=== PATIENT | male | born 1985 | race Caucasian/White ===

== ENCOUNTER 2018-01-19 01:10 | Emergency (ER) | payer SELFPAY ==
[~2018-01-19] VITALS: Ht 170.2 cm; Wt 68.1 kg
[2018-01-19 01:13] VITALS: BP 116/82
--- NOTE | 2018-01-19 01:28 | NUR ---
Dr. Howard evaluating patient at bedside.
--- NOTE | 2018-01-19 01:29 | NUR ---
PT BIB SELF C/O DIZZINESS, PT WAS SEEN BY PCP YESTERDAY FOR SORETHROAT AND LAB WORK, GIVEN RX NASAL SPARY AND ABX, PT TOOK NASAL SPRAY TODAY TOOK A NAP AND WOKE UP FEELING LIKE ROOM SPINNING. PT [id number]&[id number], LAYING IN BED, AWAKE, APPEARS TO BE IN NO ACUTE DISTRESS. NO PMH, NKDA
== END 2018-01-19 01:40 | disposition home or self-care (01) ==
LOC: MED 01:10
DX: H81.10 Benign paroxysmal vertigo, unspecified ear (principal)
CPT/HCPCS: 99282